=== PATIENT | female | born 1970 | race Two or more races ===

== ENCOUNTER → 2024-05-30 | Outpatient (CLI) | payer MEDICAID, SELFPAY ==
--- NOTE | 2024-05-30 16:36 | XR_ITS ---
Examination: Hand, right 3 views Technique: Hand AP, oblique, lateral 3 views Date and time of exam: May 30, 2024 1652 hours INDICATIONS: Right hand wrist pain beginning one year ago FINDINGS: Moderate osteopenia Healed fracture distal radius Mild diffuse narrowing joints of the wrist and hand No erosive arthritis No cortical bone destruction IMPRESSION: Mild diffuse narrowing joints of the wrist and hand No erosive arthritis
--- NOTE | 2024-05-30 16:36 | XR_ITS ---
Examination: Wrist, right 3 views Technique: Wrist AP, oblique, lateral 3 views Date and time of exam: May 30, 2024 1654 hours INDICATIONS: Right wrist and hand pain one year. FINDINGS: Moderate osteopenia Mild narrowing joints of the wrist No erosive arthritis No avascular necrosis Healed fracture distal radius No acute fracture IMPRESSION: Mild narrowing joints of the wrist
== END | disposition home or self-care (01) ==
PROVIDERS: PCP Family Medicine; Referring Provider Nurse Practitioner Gerontology; Visit Provider Nurse Practitioner Gerontology
DX: M25.831 Other specified joint disorders, right wrist (principal); M25.841 Other specified joint disorders, right hand
CPT/HCPCS: 73110; 73130

== ENCOUNTER 2024-08-11 08:09 | Emergency (ER) | payer MEDICAID, SELFPAY ==
[2024-08-11 08:10] VITALS: BMI 32.9
[2024-08-11 08:28] VITALS: BP 181/105; BP 181/78; PULSE 65; RESP 17; TEMP 37.2; O2SAT 95; BMI 33.4
--- NOTE | 2024-08-11 09:07 | EDNOTE_ITS ---
<Statement entered by Cornelia Ho MD - 08/19/24 02:10> As co-signing physician, I was present and available for consult prn. I concur with the plan and care as documented by the midlevel provider. Upper Respiratory Inf. RME/HPI General Chief Complaint: Flu Like Symptoms Stated Complaint: WHEEZING, COUGH Time Seen by Provider: 08/11/24 08:28 Arrival date/time: 08/11/24 08:09 This is a 54-year-old female that comes in with complaints of cough and congestion for the past week. Patient states she just stopped smoking and she was vaping for a while but she stopped that 2. Patient also has a history of diabetes fibromyalgia Related Data Home Medications ?Medication ?Instructions ?Recorded ?Confirmed cyclobenzaprine 10 mg tablet 10 mg PO BID 12/30/1706/08 ibuprofen 800 mg tablet 800 mg PO TID PRN Pain 12/3007/18/20 gabapentin 300 mg capsule 300 mg PO TID 07/18/2007/18 hydrocodone 10 mg-acetaminophen 1 tab PO Q6H PRN Pain 07/18/20 07/18/20 325 mg tablet pregabalin 75 mg capsule (Lyrica) 75 mg PO BID 1 07/18/20 Previous Rx's ?Medication ?Instructions ?Recorded levofloxacin 500 mg tablet 500 mg PO QDAY #8 tabs 08/06 albuterol sulfate 90 mcg/actuation 2 puff inhalation Q ID PRN 08/11/24 aerosol inhaler shortness of breath or wheez ing #8.5 grams promethazine-DM 6.25 mg-15 mg/5 mL 5 ml PO Q6H PRN cou gh #118 mL 08/11/24 oral syrup Allergies Allergy/AdvReac Type Severity Reaction Status Date / Time codeine Allergy Intermediate VOMITING Verified 08/11/24 08:12 AND TICHING Review of Systems Review of Systems Systems Reviewed: All systems reviewed, normal except as documented Past Medical History Past Medical History CARDIAC: Negative Congestive Heart Failure RESPIRATORY: Negative Chronic Obstructive Pulmonary Disease (COPD) GENITOURINARY: Negative Renal Disease MUSCULOSKELETAL: Positive Fibromyalgia ENDOCRINE: Positive Diabetes Mellitus Type 2; Negative Diabetes Mellitus Type 1 Social History SMOKING STATUS: Current every day smoker SUBSTANCE USE: does not use ED Exam General General appearance: Present alert and in no apparent distress Head Head exam: Present atraumatic Eye Eye exam: Present normal appearance, PERRL and EOMI ENT ENT exam: Present normal exam, normal oropharynx and mucous membranes moist Neck Neck exam: Present normal inspection, full ROM and trachea midline Chest Chest inspection: Present normal inspection and symmetric chest wall rise Respiratory Respiratory exam: Present normal lung sounds bilaterally Cardiovascular Cardiovascular exam: Present regular rate, normal rhythm and normal heart sounds Abdominal Exam Abdominal exam: Present soft Extremities Exam Extremities exam: Present normal inspection and full ROM Back Exam Back exam: Present normal inspection and full ROM Neurological Exam Neurological exam: Present alert, oriented X3 and CN II-XII intact Psychiatric Psychiatric exam: Present normal affect and normal mood Skin Skin exam: Present warm and dry Course Quality Measures none Orders Category Date Time Status Bedside COVID-19 Antigen Test NOW Care 08/11/24 09:06 Completed Bedside Influenza A&B Antigen Test NOW Care 08/11/24 09:06 Completed XR chest 2V Stat Exams 08/11/24 09:20 Completed Acetaminophen Tab [Tylenol ES Tab] Med 08/11/24 09:08 Discontinued 1,000 mg PO X1 ONE Ibuprofen Tab [Motrin Tab] Med 08/11/24 09:08 Discontinued 800 mg PO X1 ONE Vital Signs Vital signs: Vital Signs Temperature 99.0 F 08/11/24 08:28 Pulse Rate 65 08/11/24 08:28 Respiratory Rate 17 08/11/24 08:28 Blood Pressure 181/105 H 08/11/24 08:28 Pulse Oximetry (%) 95 08/11/24 08:28 Oxygen Delivery Method Room Air 08/11/24 08:28 Upper Respiratory Infection MDM Narrative MDM Narrative:: COVID and influenza negative. chest x ray shows: FINDINGS: Normal heart size. Lungs are clear. Osseous structures are intact IMPRESSION: No active disease Will treat supportive measures. Will send patient home with an inhaler. I will also send her home with Promethazine DM. Patient told to follow-up with primary provider in 1 to 2 days. Come back to the emergency room if symptoms change or worsen. Patient comfortable plan of care. Patient data External records reviewed:: [facility] previous records Clinical information provided by:: patient Social determinants that could affect healthcare access:: none Patient has the following chronic illnesses:: none How is presenting disease/condition affected by chronic disease/condition?: no chronic disease Evaluation data The following diagnostics were reviewed and interpreted by me:: lab results Lab and/or radiology exams considered but not ordered:: none Interpretation Summary: see note Medications / Prescriptions Medications or Prescriptions considered but not ordered:: none Medication administrations:: Medication Administration History Discontinued Medications Acetaminophen (Acetaminophen 500 Mg Tablet) 1,000 mg PO X1 ONE Stop: 08/11/24 09:09 Last Admin: 08/11/24 09:38 Dose: 1,000 mg Documented By: ARA Ibuprofen (Ibuprofen Tab 400 Mg Tablet) 800 mg PO X1 ONE Stop: 08/11/24 09:09 Last Admin: 08/11/24 09:38 Dose: 800 mg Documented By: ARA see [facility] Consultations Consultation(s) initiated? (list below): No Diagnosis Upper Respiratory Differential Diagnosis: upper respiratory infection, sinusitis, viral infection and influenza Most likely diagnosis given after review of the tests above:: uri Admission Indicated Admission indicated?: not indicated Admission Request Was there a request for admission?: No Disposition Plan Disposition Plan: Discharge Discharge Attestation Discharge Attestation: The patient and all family members were given an opportunity to ask questions and understood the discharge instructions. Discharge instructions specifically effects, indications for sooner follow up or return to the emergency department, and the expected course of current diagnosis. Patient condition: Stable Discharge Plan Plan Patient Disposition: HOME (Self Care) Prescriptions/Referrals Prescriptions/Med Rec: New promethazine-DM 6.25-15 mg/5 mL syrup 5 ml PO Q6H PRN (Reason: cough) Qty: 118 0RF albuterol sulfate 90 mcg/actuation HFA aerosol inhaler 2 puff inhalation QID PRN (Reason: shortness of breath or wheezing) Qty: 8.5 0RF No Action cyclobenzaprine 10 mg Tablet 10 mg PO BID ibuprofen 800 mg Tablet 800 mg PO TID PRN (Reason: Pain) hydrocodone-acetaminophen 10-325 mg Tablet 1 tab PO Q6H PRN (Reason: Pain) pregabalin [Lyrica] 75 mg Capsule 75 mg PO BID gabapentin 300 mg capsule 300 mg PO TID levofloxacin 500 mg tablet 500 mg PO QDAY Qty: 8 0RF Referrals: No Primary/Family,Physician [Primary Care Provider] - In 1 week Problem List Clinical Impression: RAD (reactive airway disease), Cough, URI (upper respiratory infection) Patient/Caregiver Discharge Instructions Discharge Activity: activity as tolerated Education Materials: ED URI, Viral, No Abx (Adult) Additional Instructions: Follow up with primary provider in 1-2 days. 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
--- NOTE | 2024-08-11 09:20 | XR_ITS ---
Examination: PA lateral chest 2 views TECHNIQUE: Upright PA and lateral chest 2 views Exam date and time: August 11, 2024 0931 hours Comparison March 11, 2022 INDICATIONS: Coughing and shortness of breath this week FINDINGS: Normal heart size. Lungs are clear. Osseous structures are intact IMPRESSION: No active disease
[2024-08-11] MEDS: IBUPROFEN TAB 400 MG TABLET 800 MG PO (09:38)
[2024-08-11] MEDS: ACETAMINOPHEN 500 MG TABLET 1000 MG PO (09:38)
== END 2024-08-11 11:29 | disposition home or self-care (01) ==
PROVIDERS: Emergency Provider Emergency Medicine
DX: J45.909 Unspecified asthma, uncomplicated (principal); J06.9 Acute upper respiratory infection, unspecified; Z87.891 Personal history of nicotine dependence
CPT/HCPCS: 71046; 87400; 87811; 99283; A9270

== ENCOUNTER → 2025-02-18 | Outpatient (CLI) | payer MEDICAID, SELFPAY ==
--- NOTE | 2025-02-18 12:30 | XR_ITS ---
Examination: Hand, right 3 views Technique: Hand AP, oblique, lateral 3 views Date and time of exam: February 18, 2025, 1408 hours INDICATIONS: Right hand pain beginning several years ago FINDINGS: Moderate osteopenia. Healed fracture distal radius Mild diffuse narrowing joints of the wrist and hand No erosive arthritis IMPRESSION: Mild diffuse narrowing joints of the wrist and hand No erosive arthritis
== END | disposition home or self-care (01) ==
LOC: CDIM 12:20
PROVIDERS: PCP Family Medicine; Referring Provider Nurse Practitioner Gerontology; Visit Provider Nurse Practitioner Gerontology
DX: M25.841 Other specified joint disorders, right hand (principal); M25.831 Other specified joint disorders, right wrist
CPT/HCPCS: 73130